=== PATIENT | female | born 1980 | race Caucasian/White ===

== ENCOUNTER 2017-01-11 12:38 | Emergency (ER) | payer MEDICAID ==
[2017-01-11 13:01] VITALS: BP 137/79
[2017-01-11] MEDS ORDERED: Albuterol/Ipratropium 3.0-0.5 MG/3 ML Neb Soln NEB ONE ×2 (13:02→14:22)
--- NOTE | 2017-01-11 13:30 | EDM.PDOC ---
ED HISTORY OF PRESENT ILLNESS - General Chief Complaint: Respiratory Problem Stated Complaint: ASTHMA ATTACK Time Seen by Provider: 01/11/17 13:14 Source: Reports: Patient, RN notes reviewed History Limitations: Reports: No limitations - History of Present Illness INITIAL COMMENTS - FREE TEXT/NARRATIVE: 36-year-old female presents emergency department today with complaints of shortness of breath, she has a known history of intermittent asthma however he over the winter she has been using her inhaler on a daily basis recently had an apparatus or infection a couple weeks ago was treated with steroids she states this particular event she's had any increasing use of inhaler felt more and more short of breath and had fevers over the last 3 days - Related Data Allergies/ADRs: Allergies Allergy/AdvReac Type Severity Reaction Status Date / Time acetaminophen [From Vicodin] Allergy Syncope Verified 11/29/16 19:43 hydrocodone [From Vicodin] Allergy Syncope Verified 11/29/16 19:43 Sulfa (Sulfonamide Allergy Hives Verified 11/29/16 19:43 Antibiotics) Home Meds: Home Meds Albuterol [Ventolin HFA] 2 sprays IH ASDIRECTED PRN 11/29/16 [History] Past Medical History HEENT History: Reports: Other (see below) Other HEENT History: cough resp hx asthma neb running breath sounds decreased Respiratory History: Reports: Asthma, Bronchitis, recurrent 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 Denies: Sputum Cardiovascular: Reports: No symptoms GI/Abdominal: Reports: No symptoms : Reports: no symptoms ED EXAM, GENERAL - Physical Exam Exam: See Below Exam Limited By: No limitations General Appearance: alert, WD/WN, no apparent distress Throat/Mouth: Normal inspection, Normal lips, Normal teeth, Normal gums, Normal oropharynx, Normal voice, No airway compromise Head: atraumatic, normocephalic Neck: normal inspection, supple, non-tender, full range of motion Respiratory/Chest: no respiratory distress, normal breath sounds, wheezing Cardiovascular: regular rate, rhythm, no murmur Course - Vital Signs Last Recorded V/S: Last Vital Signs Temp 100.7 F H 01/11/17 12:58 Pulse 131 H 01/11/17 12:58 Resp 28 H 01/11/17 12:58 BP 137/79 01/11/17 12:58 Pulse Ox - Orders/Labs/Meds Orders: Active Orders 24 hr Category Date Time Status Peripheral IV Care [RC] . DIRECTED Care 01/11/17 15:02 Active RT Aerosol Therapy [RC] ASDIRECTED Care 01/11/17 13:02 Active RT Aerosol Therapy [RC] ASDIRECTED Care 01/11/17 14:23 Active RT Aerosol Therapy [RC] ASDIRECTED Care 01/11/17 14:46 Active Magnesium Sulfate/Water [Magnesium Sulfate 2 GM in Med 01/11/17 14:44 Active Water 50 ML] 2 gm Premix Bag 1 bag IV ONETIME Sodium Chloride 0.9% [Saline Flush] Med 01/11/17 15:02 Active 10 ml FLUSH ASDIRECTED PRN Peripheral IV Insertion Adult [OM.PC] Urgent Oth 01/11/17 15:02 Ordered Medication Orders Magnesium Sulfate 2 gm/ Premix 50 mls @ 12.5 mls/hr IV ONETIME ONE Stop: 01/11/17 18:43 Last Admin: 01/11/17 15:17 Dose: 12.5 mls/hr Sodium Chloride (Saline Flush) 10 ml FLUSH ASDIRECTED PRN PRN Reason: Keep Vein Open Last Admin: 01/11/17 15:39 Dose: 10 ml Meds: Medications Generic Name Dose Route Start Last Admin Trade Name Freq PRN Reason Stop Dose Admin Magnesium Sulfate 2 gm/ Premix 50 mls @ 12.5 mls/hr 01/11/17 14:44 01/11/17 15:17 IV 01/11/17 18:43 12.5 mls/hr ONETIME ONE Administration Sodium Chloride 10 ml 01/11/17 15:02 01/11/17 15:39 Saline Flush FLUSH 10 ml ASDIRECTED PRN Administration Keep Vein Open Discontinued Medications Generic Name Dose Route Start Last Admin Trade Name Freq PRN Reason Stop Dose Admin Albuterol/Ipratropium 3 ml 01/11/17 13:02 01/11/17 13:05 Duoneb 3.0-0.5 Mg/3 Ml NEB 01/11/17 13:03 3 ml ONETIME ONE Administration Albuterol/Ipratropium 3 ml 01/11/17 14:22 01/11/17 14:26 Duoneb 3.0-0.5 Mg/3 Ml BANNER 01/11/17 14:23 3 ml ONETIME ONE Administration Budesonide 0.5 mg 01/11/17 14:44 01/11/17 15:06 Pulmicort NEB 01/11/17 14:45 0.5 mg ONETIME ONE Administration Methylprednisolone Sodium Succinate 40 mg 01/11/17 14:07 01/11/17 14:12 Solu-Medrol IM 01/11/17 14:08 40 mg ONETIME ONE Administration Departure - Departure Time of Disposition: 16:18 Disposition: Home, Self-Care 01 Condition: good Clinical Impression: Exacerbation of asthma Forms: ED Department Discharge Additional Instructions: take the full course of steroids, used her Flovent daily start with once a day it can be increased to twice a day, Please followup with your primary care provider in 3-5 days if not better, please call return to the emergency department with worsening of symptoms. - My Orders Last 24 Hours: My Active Orders 01/11/17 13:02 RT Aerosol Therapy [RC] ASDIRECTED 01/11/17 14:23 RT Aerosol Therapy [RC] ASDIRECTED 01/11/17 14:44 Magnesium Sulfate/Water [Magnesium Sulfate 2 GM in Water 50 ML] 2 gm Premix Bag 1 bag IV ONETIME 01/11/17 14:46 RT Aerosol Therapy [RC] ASDIRECTED 01/11/17 15:02 Peripheral IV Care [RC] . DIRECTED Sodium Chloride 0.9% [Saline Flush] 10 ml FLUSH ASDIRECTED PRN Peripheral IV Insertion Adult [OM.PC] Urgent - Assessment/Plan Last 24 Hours: My Active Orders 01/11/17 13:02 RT Aerosol Therapy [RC] ASDIRECTED 01/11/17 14:23 RT Aerosol Therapy [RC] ASDIRECTED 01/11/17 14:44 Magnesium Sulfate/Water [Magnesium Sulfate 2 GM in Water 50 ML] 2 gm Premix Bag 1 bag IV ONETIME 01/11/17 14:46 RT Aerosol Therapy [RC] ASDIRECTED 01/11/17 15:02 Peripheral IV Care [RC] . DIRECTED Sodium Chloride 0.9% [Saline Flush] 10 ml FLUSH ASDIRECTED PRN Peripheral IV Insertion Adult [OM.PC] Urgent Plan: Assessment Acuity = acute Site and laterality = asthma exacerbation probably related to viral insult Etiology = probable viral syndrome Manifestations = fever, dyspnea Location of injury = home Lab values = none Plan she had improvement with combination dual nebs, Pulmicort and magnesium sulfate , respiration was improved she was given one dose of Solu-Medrol discharge home with prednisone also prescription written for Flovent follow up with primary care in the next 3-5 days for reevaluation Patient was in agreement with the plan all questions were answered, they were instructed to return to the emergency department or call for worsening symptoms. This note was dictated using [employer] voice recognition software please call with any questions.
[2017-01-11] MEDS ORDERED: methylPREDNISolone Sodium Succinate 40 MG/1 ML SDV IM ONE (14:07)
[2017-01-11] MEDS ORDERED: Budesonide 0.5 MG/2 ML Neb Susp NEB ONE (14:44)
[2017-01-11] MEDS ORDERED: Magnesium Sulfate/Water 2 GM in Premix Bag 1 BAG IV ONE (14:44)
[2017-01-11] MEDS ORDERED: Sodium Chloride 0.9% 10 ML Syringe FLUSH PRN (15:02)
== END 2017-01-11 16:26 | disposition home or self-care (01) ==
LOC: JP.ED 12:38
DX: J45.901 Unspecified asthma with (acute) exacerbation (principal); Z88.2 Allergy status to sulfonamides; Z88.5 Allergy status to narcotic agent
CPT/HCPCS: 96374; 99285; J2920; J3475; J7050; J7620

== ENCOUNTER 2019-01-30 13:46 | Emergency (ER) | payer MEDICAID ==
[2019-01-30 13:59] VITALS: BP 146/98
--- NOTE | 2019-01-30 16:02 | EDM.PDOC ---
ED HPI GENERAL MEDICAL PROBLEM - General Chief Complaint: General Stated Complaint: SHAKING,DIZZINESS Time Seen by Provider: 01/30/19 14:44 Source of Information: Reports: Patient, Family History Limitations: Reports: No Limitations - History of Present Illness INITIAL COMMENTS - FREE TEXT/NARRATIVE: This patient was brought in by her with an episode of hypoglycemia. She does have a history of hypoglycemia in the past. She had not had anything to eat today and she was riding in the car with him when she suddenly began shaking and feeling dizzy. Her also has diabetes so gave her some of his glucose tablets. She also drank some Gatorade. By the time she arrived at the hospital she felt better although she was still shaking. She said she hasn' t eaten well for the last couple of days - Related Data Allergies Allergy/AdvReac Type Severity Reaction Status Date / Time acetaminophen [From Vicodin] Allergy Syncope Verified 01/30/19 13:58 hydrocodone [From Vicodin] Allergy Syncope Verified 01/30/19 13:58 Sulfa (Sulfonamide Allergy Hives Verified 01/30/19 13:58 Antibiotics) Home Meds: Home Meds Albuterol [Ventolin HFA] 2 sprays IH ASDIRECTED PRN 11/29/16 [History] Montelukast Sodium 10 mg PO DAILY 01/30/19 [History] Past Medical History - Past Health History Medical/Surgical History: Denies Medical/Surgical History HEENT History: Reports: Other (See Below) Other HEENT History: cough resp hx asthma neb running breath sounds decreased Respiratory History: Reports: Asthma, Bronchitis, Recurrent 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 & 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 History - Tobacco Use Smoking Status *Q: Current Every Day Smoker Years of Tobacco use: 20 Packs/Tins Daily: 0.5 - Caffeine Use Caffeine Use: Reports: Coffee, Tea - Recreational Drug Use Recreational Drug Use: No ED ROS GENERAL - Review of Systems Review Of Systems: See Below Constitutional: Reports: No Symptoms HEENT: Reports: No Symptoms Respiratory: Reports: No Symptoms Cardiovascular: Reports: No Symptoms Endocrine: Reports: Low Glucose GI/Abdominal: Reports: No Symptoms : Reports: No Symptoms ED EXAM, GENERAL - Physical Exam Exam: See Below Exam Limited By: No Limitations General Appearance: Alert, WD/WN, No Apparent Distress Eye Exam: Bilateral Eye: Normal Inspection Nose: Normal Inspection Throat/Mouth: Normal Oropharynx Head: Atraumatic Neck: Normal Inspection Respiratory/Chest: Lungs Clear Cardiovascular: Regular Rate, Rhythm, No Murmur GI/Abdominal: Non-Tender Extremities: Normal Inspection Neurological: Alert, Oriented, CN II-XII Intact Course - Vital Signs Last Recorded V/S: Last Vital Signs Temp 36.6 C 01/30/19 13:57 Pulse 98 01/30/19 13:57 Resp 14 01/30/19 13:57 BP 146/98 H 01/30/19 13:57 Pulse Ox 100 01/30/19 13:57 Orthostatic Blood Pressure [ 116/90 Standing] Orthostatic Blood Pressure [ 135/90 Sitting] Orthostatic Blood Pressure [ 134/85 Supine] - Orders/Labs/Meds Labs: Laboratory Tests 01/30/19 01/30/19 Range/Units 15:07 15:07 WBC 9.8 (4.5-11.0) K/uL RBC 4.21 (3.30-5.50) M/uL Hgb 13.7 (12.0-15.0) g/dL Hct 41.5 (36.0-48.0) % MCV 99 H (80-98) fL MCH 33 H (27-31) pg MCHC 33 (32-36) % Plt Count 212 (150-400) K/uL Neut % (Auto) 69 H (36-66) % Lymph % (Auto) 21 L (24-44) % [place] % (Auto) 6 (2-6) % Eos % (Auto) 3 (2-4) % Baso % (Auto) 0 (0-1) % Sodium 140 (140-148) mmol/L Potassium 4.0 (3.6-5.2) mmol/L Chloride 104 (100-108) mmol/L Carbon Dioxide 27 (21-32) mmol/L Anion Gap 9.3 (5.0-14.0) mmol/L BUN 10 (7-18) mg/dL Creatinine 0.7 (0.6-1.0) mg/dL Est Cr Clr Drug Dosing 104.01 mL/min Estimated GFR (MDRD) > 60 (>60) Glucose 124 H (74-106) mg/dL Calcium 9.1 (8.5-10.1) mg/dL Total Bilirubin 0.3 (0.2-1.0) mg/dL AST 14 L (15-37) U/L ALT 22 (12-78) U/L Alkaline Phosphatase 58 (46-116) U/L Total Protein 7.1 (6.4-8.2) g/dL Albumin 3.7 (3.4-5.0) g/dL Globulin 3.4 (2.3-3.5) g/dL Albumin/Globulin Ratio 1.1 L (1.2-2.2) - Re-Assessments/Exams Free Text/Narrative Re-Assessment/Exam: 01/30/19 16:05 Labs appear to be normal. The patient's has a couple of glucometers that he is going to give her to monitor her glucose carefully. Departure - Departure Time of Disposition: 15:59 Disposition: Home, Self-Care 01 Condition: Fair Clinical Impression: Hypoglycemia - Discharge Information Instructions: Hypoglycemia, [id number] Referrals: Mateo Fair FIRE TECHNICIAN [Primary Care Provider] - Forms: ED Department Discharge Additional Instructions: Most likely you had an episode of hypoglycemia. If this happens again try to check your blood sugar. Be sure to eat a regular diet. The shaking you get with a low blood sugar is caused by adrenaline which is secreted by your adrenal glands to try to bring up your blood sugar. The adrenaline doesn't go away immediately when you take in sugar. That may be why the shaking seemed to last a long time. Hypoglycemic episodes can be a precursor to type 2 diabetes. If you're having these episodes frequently then you shouldn't drive an automobile until you get them under control. Be sure to keep some glucose tablets or candy bar and so forth handy in case of another episode.
== END 2019-01-30 16:15 | disposition home or self-care (01) ==
LOC: JP.ED 13:46
DX: E16.2 Hypoglycemia, unspecified (principal); F17.210 Nicotine dependence, cigarettes, uncomplicated; J45.909 Unspecified asthma, uncomplicated; Z88.2 Allergy status to sulfonamides; Z88.5 Allergy status to narcotic agent; Z79.899 Other long term (current) drug therapy
CPT/HCPCS: 36415; 80053; 85025; 99283

== ENCOUNTER 2020-10-24 14:27 | Emergency (ER) | payer MEDICAID ==
[2020-10-24 14:56] VITALS: BP 138/90; PULSE 94
--- NOTE | 2020-10-24 15:32 | EDM.PDOC ---
ED HPI GENERAL MEDICAL PROBLEM - General Chief Complaint: Chest Pain Stated Complaint: PAIN CHEST AREA Time Seen by Provider: 10/24/20 15:06 Source of Information: Reports: Patient, RN Notes Reviewed History Limitations: Reports: No Limitations - History of Present Illness INITIAL COMMENTS - FREE TEXT/NARRATIVE: 40-year-old female presents emergency department a complaint of chest pain, she states the pain started about 1 hour prior initially started in the center of her chest but now is migrated to the left side mid axillary. Does feel short of breath at times no nausea vomiting no diaphoresis no history of coronary artery disease herself father myocardial infarction in his 50s she does use tobacco products Left Chest Pain Score (Numeric/FACES): 5 - Related Data Allergies Allergy/AdvReac Type Severity Reaction Status Date / Time acetaminophen [From Vicodin] Allergy Syncope Verified 10/24/20 14:48 hydrocodone [From Vicodin] Allergy Syncope Verified 10/24/20 14:48 Sulfa (Sulfonamide Allergy Hives Verified 10/24/20 14:48 Antibiotics) Home Meds: Home Meds Albuterol [Ventolin HFA] 2 sprays IH ASDIRECTED PRN 11/29/16 [History] Montelukast Sodium 10 mg PO DAILY 01/30/19 [History] Past Medical History HEENT History: Reports: Other (See Below) Other HEENT History: cough resp hx asthma neb running breath sounds decreased Respiratory History: Reports: Asthma, Bronchitis, Recurrent Other Respiratory History: allergies causing 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 symptoms 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: - Infectious Disease History Infectious Disease History: Reports: Chicken Pox - Past Surgical History Female Surgical History: Reports: None Neurological Surgical History: Reports: None Social & Family History - Tobacco Use Tobacco Use Status *Q: Current Every Day Tobacco User Years of Tobacco use: 20 Packs/Tins Daily: 0.5 - Caffeine Use Caffeine Use: Reports: None - Recreational Drug Use Recreational Drug Use: No ED ROS GENERAL - Review of Systems Review Of Systems: See Below Constitutional: Reports: No Symptoms Respiratory: Reports: Shortness of Breath Cardiovascular: Reports: Chest Pain GI/Abdominal: Reports: No Symptoms ED EXAM, GENERAL - Physical Exam Exam: See Below Exam Limited By: No Limitations General Appearance: Alert, WD/WN, No Apparent Distress Respiratory/Chest: No Respiratory Distress, Lungs Clear, Normal Breath Sounds, No Accessory Muscle Use, Chest Non-Tender Cardiovascular: Regular Rate, Rhythm, No Murmur GI/Abdominal: Soft, Non-Tender Course - Vital Signs Last Recorded V/S: Last Vital Signs Temp 97.2 F 10/24/20 14:51 Pulse 94 10/24/20 14:51 Resp 16 10/24/20 14:51 BP 138/90 10/24/20 14:51 Pulse Ox 100 10/24/20 14:51 - Orders/Labs/Meds Orders: Active Orders 24 hr Category Date Time Status Cardiac Monitoring [RC] .As Directed Care 10/24/20 15:10 Active EKG Documentation Completion [RC] ASDIRECTED Care 10/24/20 15:10 Active Chest 1V Frontal [CR] Stat Exams 10/24/20 15:10 Taken EKG 12 Lead [EK] Stat Ther 10/24/20 15:10 Ordered Labs: Laboratory Tests 10/24/20 10/24/20 Range/Units 15:19 15:19 WBC 8.6 (4.5-11.0) K/uL RBC 4.51 (3.30-5.50) M/uL Hgb 14.5 (12.0-15.0) g/dL Hct 44.0 (36.0-48.0) % MCV 98 (80-98) fL MCH 32 H (27-31) pg MCHC 33 (32-36) % Plt Count 221 (150-400) K/uL Neut % (Auto) 50 (36-66) % Lymph % (Auto) 27 (24-44) % [place] % (Auto) 8 H (2-6) % Eos % (Auto) 15 H (2-4) % Baso % (Auto) 1 (0-1) % Sodium 141 (140-148) mmol/L Potassium 3.9 (3.6-5.2) mmol/L Chloride 103 (100-108) mmol/L Carbon Dioxide 25 (21-32) mmol/L Anion Gap 12.7 (5.0-14.0) mmol/L BUN 16 D (7-18) mg/dL Creatinine 0.7 (0.6-1.0) mg/dL Est Cr Clr Drug Dosing 105.97 mL/min Estimated GFR (MDRD) > 60 (>60) Glucose 93 (74-106) mg/dL Calcium 9.3 (8.5-10.1) mg/dL Total Bilirubin 0.4 (0.2-1.0) mg/dL AST 12 L (15-37) U/L ALT 28 (12-78) U/L Alkaline Phosphatase 58 (46-116) U/L Troponin I < 0.017 (0.000-0.056) ng/mL Total Protein 7.4 (6.4-8.2) g/dL Albumin 3.9 (3.4-5.0) g/dL Globulin 3.5 (2.3-3.5) g/dL Albumin/Globulin Ratio 1.1 L (1.2-2.2) Departure - Departure Time of Disposition: 16:35 Disposition: Home, Self-Care 01 Condition: Fair Clinical Impression: Atypical chest pain Instructions: Nonspecific Chest Pain, Adult Referrals: PCP,None [Primary Care Provider] - Forms: ED Department Discharge Additional Instructions: Please followup with your primary care provider in 3-5 days if not better, please call return to the emergency department with worsening of symptoms. Sepsis Event Note (ED) - Evaluation Sepsis Screening Result: No Definite Risk - Focused Exam Vital Signs: Vital Signs Temp Pulse Resp BP Pulse Ox 10/24/20 14:51 97.2 F 94 16 138/90 100 - My Orders Last 24 Hours: My Active Orders 10/24/20 15:10 Cardiac Monitoring [RC] .As Directed EKG Documentation Completion [RC] ASDIRECTED Chest 1V Frontal [CR] Stat EKG 12 Lead [EK] Stat - Assessment/Plan Last 24 Hours: My Active Orders 10/24/20 15:10 Cardiac Monitoring [RC] .As Directed EKG Documentation Completion [RC] ASDIRECTED Chest 1V Frontal [CR] Stat EKG 12 Lead [EK] Stat Plan: Assessment Acuity = acute Site and laterality = atypical chest pain Etiology = unknown suspicious for muscle skeletal Manifestations = none Location of injury = Home Lab values = CBC CMP troponin all within normal limits EKG demonstrates normal sinus rhythm there is no ST elevation or depression chest x-ray shows no acute process Plan Heart score is 1 she declined any pain medication pain improved without treatment, have her follow-up with her primary care next 3 to 5 days for reevaluation This note was dictated using [email or web address] voice recognition software please call with any questions on syntax or grammar.
--- NOTE | 2020-10-25 08:50 | CR ---
CHEST: Portable 10/24/2020 at 3:42 PM CLINICAL HISTORY:Chest pain COMPARISON:2016 FINDINGS: The heart size, pulmonary vascularity and hilar structures are normal. No infiltrate effusion or pneumothorax is seen. IMPRESSION: No acute cardiopulmonary process.
== END 2020-10-24 16:38 | disposition home or self-care (01) ==
LOC: JP.ED 14:27
DX: R07.89 Other chest pain (principal); J45.909 Unspecified asthma, uncomplicated; Z72.0 Tobacco use; Z88.6 Allergy status to analgesic agent; Z88.5 Allergy status to narcotic agent; Z88.2 Allergy status to sulfonamides; Z79.899 Other long term (current) drug therapy
CPT/HCPCS: 36415; 71045; 71045-26; 80053; 84484; 85025; 93005; 93010; 99284; 99285-25

== ENCOUNTER 2021-05-06 10:31 | Emergency (ER) | payer BC, MEDICAID ==
[2021-05-06 11:02] VITALS: BP 137/87; PULSE 85
--- NOTE | 2021-05-06 11:15 | EDM.PDOC ---
ED HPI GENERAL MEDICAL PROBLEM - General Chief Complaint: Genitourinary Problem Stated Complaint: UTI?? Time Seen by Provider: 05/06/21 10:48 Source of Information: Reports: Patient History Limitations: Reports: No Limitations - History of Present Illness INITIAL COMMENTS - FREE TEXT/NARRATIVE: 40 yo female presents to the ER with dysuria. last UTI was over a year ago. symptoms started last evening. afebrile. generally feeling well - Related Data Allergies Allergy/AdvReac Type Severity Reaction Status Date / Time acetaminophen [From Vicodin] Allergy Syncope Verified 05/06/21 10:53 hydrocodone [From Vicodin] Allergy Syncope Verified 05/06/21 10:53 Sulfa (Sulfonamide Allergy Hives Verified 05/06/21 10:53 Antibiotics) Home Meds: Home Meds Albuterol [Ventolin HFA] 2 sprays IH ASDIRECTED PRN 11/29/16 [History] Montelukast Sodium 10 mg PO DAILY 01/30/19 [History] Past Medical History HEENT History: Reports: Other (See Below) Other HEENT History: cough resp hx asthma neb running breath sounds decreased Cardiovascular History: Reports: None Respiratory History: Reports: Asthma, Bronchitis, Recurrent Other Respiratory History: allergies causing Asthma symptoms Gastrointestinal History: Reports: None Genitourinary History: Reports: 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: Musculoskeletal History: Reports: None Neurological History: Reports: None Psychiatric History: Reports: None Endocrine/Metabolic History: Reports: None Hematologic History: Reports: None Immunologic History: Reports: None Oncologic (Cancer) History: Reports: None Dermatologic History: Reports: None - Infectious Disease History Infectious Disease History: Reports: Chicken Pox - Past Surgical History Female Surgical History: Reports: None Neurological Surgical History: Reports: None Social & Family History - Tobacco Use Tobacco Use Status *Q: Current Every Day Tobacco User Years of Tobacco use: 20 Packs/Tins Daily: 0.5 - Caffeine Use Caffeine Use: Reports: None ED ROS GENERAL - Review of Systems Review Of Systems: See Below Constitutional: Denies: Fever, Chills Respiratory: Denies: Shortness of Breath, Wheezing Cardiovascular: Denies: Chest Pain GI/Abdominal: Reports: Abdominal Pain (suprapubic) ED EXAM, GI/ABD - Physical Exam Exam: See Below Exam Limited By: No Limitations General Appearance: Alert, WD/WN, No Apparent Distress Respiratory/Chest: No Respiratory Distress, Lungs Clear, Normal Breath Sounds. No: Crackles, Rhonchi, Wheezing Cardiovascular: Regular Rate, Rhythm, No Murmur GI/Abdominal Exam: Soft, No Distention, No Mass, Tender (mild suprapubic) Course - Vital Signs Last Recorded V/S: Last Vital Signs Temp 36.6 C 05/06/21 10:57 Pulse 85 05/06/21 10:57 Resp 15 05/06/21 10:57 BP 137/87 05/06/21 10:57 Pulse Ox 99 05/06/21 10:57 - Orders/Labs/Meds Orders: Active Orders 24 hr Category Date Time Status CULTURE URINE [RM] Stat Lab 05/06/21 11:00 Ordered Labs: Laboratory Tests 05/06/21 Range/Units 10:52 Urine Color Yellow (YELLOW) Urine Appearance Slightly cloudy A (CLEAR) Urine pH 7.0 (5.0-8.0) Ur Specific [place] 1.015 (1.008-1.030) Urine Protein Negative (NEGATIVE) mg/dL Urine Glucose (UA) Negative (NEGATIVE) mg/dL Urine Ketones Negative (NEGATIVE) mg/dL Urine Occult Blood Small H (NEGATIVE) Urine Nitrite Positive H (NEGATIVE) Urine Bilirubin Negative (NEGATIVE) Urine Urobilinogen 0.2 (0.2-1.0) EU/dL Ur Leukocyte Esterase Trace H (NEGATIVE) Urine RBC 0-5 (0-5) Urine WBC 10-20 H (0-5) Ur Epithelial Cells Rare Amorphous Sediment Not seen Urine Bacteria Rare Urine Mucus Not seen Departure - Departure Time of Disposition: 11:07 Disposition: Home, Self-Care 01 Condition: Good Clinical Impression: UTI, Urinary tract infectious disease - Discharge Information *PRESCRIPTION DRUG MONITORING PROGRAM REVIEWED*: Not Applicable *COPY OF PRESCRIPTION DRUG MONITORING REPORT IN PATIENT JIN: Not Applicable Instructions: Urinary Tract Infection, Adult, [id number] Referrals: Mateo Fair NP [Primary Care Provider] - Additional Instructions: Macrobid 100 mg twice daily for 7 days increase fluid intake with goal of 1-1.5 liters per day Sepsis Event Note (ED) - Evaluation Sepsis Screening Result: No Definite Risk - Focused Exam Vital Signs: Vital Signs Temp Pulse Resp BP Pulse Ox 05/06/21 10:57 36.6 C 85 15 137/87 99 05/06/21 10:52 36.6 C 94 15 162/102 H 99 - My Orders Last 24 Hours: My Active Orders 05/06/21 11:00 CULTURE URINE [RM] Stat - Assessment/Plan Last 24 Hours: My Active Orders 05/06/21 11:00 CULTURE URINE [RM] Stat
== END 2021-05-06 11:20 | disposition home or self-care (01) ==
LOC: JP.ED 10:31
DX: N39.0 Urinary tract infection, site not specified (principal); Z88.5 Allergy status to narcotic agent; Z88.2 Allergy status to sulfonamides; Z88.6 Allergy status to analgesic agent; Z72.0 Tobacco use
CPT/HCPCS: 81001; 87086; 99283

== ENCOUNTER 2022-02-22 20:19 | Emergency (ER) | payer MEDICAID ==
[2022-02-22] MEDS ORDERED: Sodium Chloride 0.9% 1,000 ML IV SCH (20:45)
[2022-02-22 20:48] VITALS: BP 149/105; PULSE 92
== END 2022-02-22 21:17 | disposition home or self-care (01) ==
LOC: JP.ED 20:19
DX: N30.00 Acute cystitis without hematuria (principal); Z72.0 Tobacco use; Z88.2 Allergy status to sulfonamides; Z88.5 Allergy status to narcotic agent
CPT/HCPCS: 81001; 87086; 99281; 99283

== ENCOUNTER 2022-06-27 07:30 | Day surgery (SDC) | payer MEDICAID ==
[~2022-06-27 07:30] MED LIST: Bupivacaine 0.5% 30 ML SDV ONE
[2022-06-27] MEDS: Acetaminophen 500 MG Tab PO ONE (07:59)
[2022-06-27] MEDS: Albuterol/Ipratropium 3.0-0.5 MG/3 ML Neb Soln NEB ONE (07:59)
[2022-06-27] MEDS: Dextrose 5%-Lactated Ringers 1,000 ML IV SCH (08:19)
[2022-06-27] MEDS ORDERED: ceFAZolin 2 GM in Sodium Chloride 0.9% 50 ML IV ONE (08:45)
[2022-06-27] MEDS ORDERED: fentaNYL 100 MCG/2 ML SDV ONE ×2 (08:51→08:59)
[2022-06-27] MEDS ORDERED: Midazolam 1 MG/ML 2 ML SDV ONE ×2 (08:51→09:04)
[2022-06-27] MEDS ORDERED: Propofol 200 MG/20 ML SDV ONE ×2 (08:52→09:11)
[2022-06-27] MEDS: Bupivacaine 0.5% 50 ML MDV ONE (09:20)
[2022-06-27] MEDS: Lidocaine 1% with EPINEPHrine 1:100,000 50 ML MDV ONE (09:20)
[2022-06-27] MEDS: Linezolid 600 MG/300 ML Premix Bag IRR ONE (09:30)
[2022-06-27] MEDS: Bacitracin Oint 1 GM U/D Packet ONE (09:30)
[2022-06-27] MEDS: Meropenem 500 MG SDV ONE (09:30)
[2022-06-27 10:45] VITALS: PULSE 85
[2022-06-27 11:05] VITALS: BP 126/93
== END 2022-06-27 11:10 | disposition home or self-care (01) ==
LOC: JP.SDS 07:30
PROVIDERS: ATTEND Surgery
DX: R19.00 Intra-abdominal and pelvic swelling, mass and lump, unspecified site (principal); J45.909 Unspecified asthma, uncomplicated; Z88.2 Allergy status to sulfonamides; Z88.5 Allergy status to narcotic agent; Z79.899 Other long term (current) drug therapy
CPT/HCPCS: 81025; 88381; 94640; A9270-GY; J2020; J2185; J2250; J2704; J3010; J3490; J7121; J7620

== ENCOUNTER 2022-08-29 07:28 | Day surgery (SDC) | payer MEDICAID ==
[~2022-08-29 07:28] MED LIST changes: -Bupivacaine 0.5% 30 ML SDV ONE; +Dexamethasone 4 MG/ML SDV ONE; +Glycopyrrolate 0.2 MG/ML 5 ML MDV ONE; +Neostigmine Methylsulfate 1 MG/ML 5 ML Syringe ONE; +Ondansetron 4 MG/2 ML SDV ONE; +Propofol 200 MG/20 ML SDV ONE; +Rocuronium 50 MG/5 ML Vial ONE; +Succinylcholine 200 MG/10 ML MDV ONE; +fentaNYL 250 MCG/5 ML SDV ONE
[2022-08-29] MEDS ORDERED: Acetaminophen 500 MG Tab PO ONE (07:45)
[2022-08-29] MEDS ORDERED: Bupivacaine 0.5% 50 ML MDV ONE (07:51)
[2022-08-29] MEDS ORDERED: Lidocaine 1% with EPINEPHrine 1:100,000 50 ML MDV ONE (07:51)
[2022-08-29] MEDS ORDERED: Albuterol/Ipratropium 3.0-0.5 MG/3 ML Neb Soln NEB ONE (08:00)
[2022-08-29] MEDS ORDERED: Dextrose 5%-Lactated Ringers 1,000 ML IV SCH (08:00)
[2022-08-29 08:12] LABS: ESTIMATED GFR 116 mL/min (>60)
[2022-08-29] MEDS ORDERED: ceFAZolin 2 GM in Sodium Chloride 0.9% 50 ML IV ONE (08:30)
[2022-08-29] MEDS ORDERED: Ketorolac 30 MG/ML SDV ONE (10:11)
[2022-08-29 11:53] VITALS: BP 128/84; PULSE 70
== END 2022-08-29 12:01 | disposition home or self-care (01) ==
LOC: JP.SDS 07:28
PROVIDERS: ATTEND Surgery
DX: D48.7 Neoplasm of uncertain behavior of other specified sites (principal); J45.30 Mild persistent asthma, uncomplicated; Z88.2 Allergy status to sulfonamides; Z87.891 Personal history of nicotine dependence; Z88.5 Allergy status to narcotic agent; Z79.899 Other long term (current) drug therapy
CPT/HCPCS: 21936; 36415; 80053; 81025; 85027; 88307; A9270; J0690; J1100; J1885; J2405; J2704; J2710; J3010; J3490; J7121; J0330; J7620

== ENCOUNTER 2023-04-19 03:42 | Emergency (ER) | payer OTHER, MEDICAID ==
[2023-04-19 04:13] LABS: APPEARANCE,URINE CLEAR (CLEAR); BILIRUBIN,URINE NEGATIVE (NEGATIVE); GLUCOSE,URINE NEGATIVE (NEGATIVE); KETONES,URINE NEGATIVE (NEGATIVE); LEUKOCYTE ESTERASE,URINE SMALL (NEGATIVE); NITRITE,URINE POSITIVE (NEGATIVE); OCCULT BLOOD,URINE TRACE-INTACT (NEGATIVE); PROTEIN,URINE NEGATIVE (NEGATIVE); UROBILINOGEN,URINE 0.2 EU/dL (0.2-1.0)
[2023-04-19 04:19] LABS: AMORPHOUS SEDIMENT,URINE NOT SEEN; BACTERIA,URINE FEW; COLOR,URINE YELLOW (YELLOW); EPITHELIAL CELLS,URINE RARE; MUCUS,URINE NOT SEEN; RBC,URINE 0-5 (0-5)
[2023-04-19 04:21] VITALS: BP 140/90; PULSE 97
== END 2023-04-19 04:50 | disposition home or self-care (01) ==
LOC: JP.ED 03:42
DX: N39.0 Urinary tract infection, site not specified (principal); J45.909 Unspecified asthma, uncomplicated; Z72.0 Tobacco use; Z88.2 Allergy status to sulfonamides; Z88.5 Allergy status to narcotic agent
CPT/HCPCS: 81001; 87086; 99283